=== PATIENT | female | born 1970 | race African-American/Black ===

== ENCOUNTER 2017-03-09 13:26 | Emergency (ER) | payer SELFPAY ==
[2017-03-09 13:32] VITALS: BP 126/79; BMI 36.0
[2017-03-09] MEDS ORDERED: NS 1000 ML 1,000 ML IV ONE (13:38)
[2017-03-09] MEDS ORDERED: TORADOL 30 MG VIAL IVP ONE (13:38)
[2017-03-09] MEDS ORDERED: TORADOL 30 MG VIAL ONE (13:40)
[2017-03-09] MEDS ORDERED: NS 1000 ML 1,000 ML ONE (13:40)
[2017-03-09] MEDS ORDERED: TYLENOL 500 MG TAB EXTRA STRENGTH PO ONE ×2 (13:58→13:59)
--- NOTE | 2017-03-09 14:05 | DR.GENAD ---
HPI - PCP Primary Care Physician: angella - HPI Comment HPI Comment: WORSE TODAY. COUGHING, PRODUCTIVE YELLOW SPUTUM. - Complaint/Symptoms Chief Complaint Doctors Comments: BODYACHE, FEVER, HEADACHE AND COUGH, COLD AND CONGESTION TIMES ONE DAY. Chief Complaint:: patient stated she has had a headache for a weak, the fever and body aches started yesterday. - Nurses notes reviewed Nurses Notes Review: Yes - Source History Provided: Patient - Mode of Arrival Mode of Arrival: Ambulatory - Timing Onset of Chief Complaint: 03/08/17 Came on: Suddenly - Duration Duration: Constant Duration: Days - Severity Severity: Moderate PMH - PMH Past Medical History: No Past Surgical History: No - Family History History of Family Medical Conditions: No - Social History Does patient currently use any type of tobacco product: No Have you used tobacco products in the last 12 months: No Type of Tobacco Use: None Does any household member use tobacco: No Alcohol Use: None Do you use any recreational Drugs:: No Lives With: Family Lives Where: Home - infectious screening In the last 2 months have you had wt loss of >10#?: NO Have you had fever, night sweats or hemotysis?: No Have you traveled outside the country in the last 6 months?: No Isolation: Standard ROS - Review of Systems Constitutional: Chills, Fever, Weakness, Fatigue Eyes: negative: Eye Pain, Discharge ENTM: Ear Pain, Nose Discharge, Nose Congestion, Throat Pain Respiratoy: Non-Productive Cough. negative: Short of Breath, Wheezing Cardiovascular: No Symptoms Reported Gastrointestinal/Abdominal: No Symptoms Reported Genitourinary: No Symptoms Reported Neurological: Headache, Weakness, Dizziness Musculoskeletal: Back Pain, Muscle Pain Integumentary: No Symptoms Reported Hematologic/Lymphatic: No Symptoms Reported Endocrine: No Symptoms Reported All Other Systems: Reviewed and Negative PE - Vital Signs Vitals: Temperature 99.8 F Pulse Rate [Right Brachial] 101 Pulse Rate 118 Respiratory Rate 16 Blood Pressure 126/79 O2 Sat by Pulse Oximetry 98 - General Limitations: No Limitations General Appearance: Alert - Head Head Exam: Normal Inspection - Eyes Eye exam: Normal Appearance - ENT ENT Exam: Normal External Ear Exam External Ear Exam: Normal External Inspection TM/Canal Exam: Bilateral Bulging Nose Exam: Normal Nose Exam Mouth Exam: Normal Inspection Throat Exam: Tonsillar Erythema. negative: Tonsillomegaly, Tonsillar Exudate - Neck Neck Exam: Trachea Midline - Chest Chest Inspection: Symmetric Chest Wall Rise - Respiratory Respiratory Exam: Normal Lung Sounds Bilat Respiratory Exam: Bilateral Clear to Auscultation - Cardiovascular Cardiovascular Exam: Regular Rate, Normal Rhythm, Normal Heart Sounds - Abdominal Exam Abdominal Exam: Normal Inspection - Extremities Extremities Exam: Normal Inspection - Back Back Exam: Normal Inspection - Neurologic Neurological Exam: Alert, Oriented X3 - Psychiatric Psychiatric Exam: Normal Affect, Normal Mood - Skin Skin Exam: Normal Color MDM - Additional Information Additional Information Obtained From: Family - Differential Diagnosis Differential Diagnosis: FLU, BRONCHITIS, SINUSITIS, PHARYNGITIS Course - Treatment Treatment: SEE ORDERS. IV NS AND IV TORADOL AND PO TYLENOL IN ED. - Reevaluation 1st: Improved (FEVER DECREASING.) - Education/Counseling Education/Counseling: Patient, Family, Education Educated On: Treatment, Diagnosis, Needs for Follow Up ROR - Labs Reviewed Laboratory Results Reviewed?: Yes Laboratory: Influenza Type A (PCR) Negative (NEGATIVE) 03/09/17 13:52 Influenza Type B (PCR) Positive (NEGATIVE) A 03/09/17 13:52 - Diagnosis Discharge Problem: Influenza, Bronchitis - Discharge Plan Disposition: HOME, SELF-CARE Condition: Stable Prescriptions: Amoxicillin [Amoxil 875 mg] 875 mg PO BID #14 tab Benzonatate [TESSALON PERLES *] 200 mg PO TID PRN #30 cap PRN Reason: Cough Oseltamivir Phosphate [Tamiflu] 75 mg PO BID #10 cap Tramadol HCl 50 mg PO Q8H PRN #15 tablet PRN Reason: - Follow ups/Referrals Follow ups/Referrals: Xin Gray [Primary Care Provider] - 3 days - Instructions Instructions: Influenza, Adult, [id number], Acute Bronchitis, [id number] Additional Instructions: RETURN TO ED IF WORSE.
== END 2017-03-09 15:01 | disposition home or self-care (01) ==
LOC: ER 13:42
DX: J11.1 Influenza due to unidentified influenza virus with other respiratory manifestations (principal); J40 Bronchitis, not specified as acute or chronic
CPT/HCPCS: 87502; 96365; 96374; 99283; 99284; A4222; J1885